=== PATIENT | male | born 1990 | race African-American/Black ===

== ENCOUNTER 2019-09-04 11:32 | Emergency (ER) | payer SELFPAY ==
[2019-09-04] MEDS ORDERED: IBUPROFEN 400 MG TABLET (FP) PO ONE ×2 (12:00→12:01)
[2019-09-04 12:01] VITALS: BP 119/81; PULSE 62; TEMP 98.6; BMI 29.2
--- NOTE | 2019-09-04 12:08 | PDOC ---
History of Present Illness - General Chief Complaint: Pain, Acute Stated Complaint: POSSIBLE BROKEN RT FOOT Time Seen by Provider: 09/04/19 11:55 History Source: Patient Exam Limitations: No Limitations Past History - Past Medical History Allergies/Adverse Reactions: Allergies Allergy/AdvReac Type Severity Reaction Status Date / Time No Known Allergies Allergy Verified 09/04/19 11:55 - Psycho Social/Smoking Cessation Hx Smoking History: Never smoked *Physical Exam - Vital Signs Last Vital Signs Temp Pulse Resp BP Pulse Ox 98.6 F 62 16 119/81 99 09/04/19 11:57 09/04/19 11:57 09/04/19 11:57 09/04/19 11:57 09/04/19 11:57 - Physical Exam General Appearance: No: Apparent Distress Extremity: positive: Other (+TTP and mild swelling along lateral aspect of R foot, RLE neurovascularly intact) Integumentary: positive: Normal Color. negative: Ecchymosis, Bruising Neurologic: positive: Alert, Normal Mood/Affect ED Treatment Course - RADIOLOGY Radiology Studies Ordered: Category Date Time Status ANKLE & FOOT-RIGHT* [RAD] Stat Radiology 09/04/19 12:00 Ordered - Medications Given in the ED: ED Medications Discontinued Medications Generic Name Dose Route Start Last Admin Trade Name Freq PRN Reason Stop Dose Admin Ibuprofen 800 mg 09/04/19 12:00 09/04/19 12:04 Motrin - PO 09/04/19 12:01 800 mg ONCE ONE Administration Medical Decision Making - Medical Decision Making 28 y/o M with no sig pmh presents with R foot injury while playing basketball yesterday. States someone stepped on his foot while playing. Patient states he was still able to finish playing the game and walked home. However, noticed some swelling today. Denies fever, numbness. Xrays negative for fracture Likely sprain Placed in air cast splint, given crutches 09/04/19 12:11 Discharge - Discharge Information Problems reviewed: Yes Clinical Impression/Diagnosis: Ankle sprain Qualifiers: Encounter type: initial encounter Involved ligament of ankle: unspecified ligament Laterality: right Qualified Code(s): S93.401A - Sprain of unspecified ligament of right ankle, initial encounter Condition: Stable Disposition: HOME - Admission No - Additional Discharge Information Prescription Drug Monitoring Program (I-STOP) results: I-STOP not reviewed - Follow up/Referral - Patient Discharge Instructions Patient Printed Discharge Instructions: DI for Ankle Sprain Additional Instructions: Thank you for choosing [facility]. It was a pleasure taking care of you. You may take Motrin 600 mg every 6 hours by mouth as needed for mild to moderate pain. Take Motrin with food. Apply ice to decrease swelling Keep leg elevated above level of heart Return to the Emergency Department if your symptoms worsen or persist or have other concerning symptoms. - Post Discharge Activity
== END 2019-09-04 12:51 | disposition home or self-care (01) ==
LOC: JERFT 11:32
PROC: 2W3QX1Z Immobilization of Right Lower Leg using Splint (ICD-10-PCS; principal; 2019-09-04)
DX: S93.401A Sprain of unspecified ligament of right ankle, initial encounter (principal); W50.0XXA Accidental hit or strike by another person, initial encounter; Y93.67 Activity, basketball; Y92.310 Basketball court as the place of occurrence of the external cause; Y99.8 Other external cause status
CPT/HCPCS: 73610-TC-RT-FY; 73630-TC-RT-FY; 99281-25